=== PATIENT | female | born 1970 | race Caucasian/White ===

== ENCOUNTER 2016-04-23 21:40 | Emergency (ER) | payer BC, OTHER ==
[~2016-04-23] VITALS: Ht 157.5 cm; Wt 83.0 kg
[~2016-04-23 21:40] MED LIST: CETI10TA22 PO; LOSA25TA PO; OMEP20CA5 PO; SUBC1EAC MC; VILA40TA PO
[2016-04-23] MEDS ORDERED: IV NORMAL SALINE 1,000ML 1,000 ML IV SCH (22:20)
[2016-04-23] MEDS ORDERED: ONDANSETRON PF 4 MG/2 ML VIAL. ONE (22:52)
--- NOTE | 2016-04-23 23:10 | EKG ---
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
[2016-04-23] MEDS ORDERED: ONDANSETRON PF 4 MG/2 ML VIAL. IV ONE (23:15)
[2016-04-23 23:26] LABS: BASO % 0 % (0-3); EOS # 0.1 x10^3/uL (0.0-0.7); EOS % 1 % (0-3); HEMATOCRIT 43.1 % (36.0-47.0); HEMOGLOBIN 14.2 g/dL (12.0-15.5); LYMPH # 1.8 x10^3/uL (1.0-4.8); LYMPH % 17 % (24-48); MEAN CORPUSCULAR HEMOGLOBIN 29 pg (25-35); MEAN CORPUSCULAR HGB CONC 33 g/dL (31-37); MEAN CORPUSCULAR VOLUME 87 fL (79-100); MONO # 0.9 x10^3/uL (0.0-1.1); MONO % 8 % (0-9); NEUT # 7.8 x10^3uL (1.8-7.7); NEUT % 74 % (31-73); PLATELET COUNT 461 x10^3/uL (140-400); RED BLOOD COUNT 4.93 x10^6/uL (3.50-5.40); RED CELL DISTRIBUTION WIDTH 12.8 % (11.5-14.5); WHITE BLOOD COUNT 10.5 x10^3/uL (4.0-11.0)
--- NOTE | 2016-04-23 23:27 | PHYS DOC ---
General Chief Complaint: HYPERGLYCEMIA Stated Complaint: BLOOD SUGAR HIGH,NAUSEA,DIABETIC Time Seen by MD: 22:19 Source: patient, old records Exam Limitations: no limitations Problems: History of Present Illness Initial Comments Pt is 45/F to ED c/o elevated glucose. Pt has h/o DM2 with insulin pump, states she maintains consistent ADA diet and med regimen consistency no missed doses. States her BS earlier today at home was greater than 400, she had some mild nausea no vomitting or abdominal pain, no cp/sob/myalgias/sparks. States she had difficulty with the insulin pump she was using thru the day today, before ED at home she changed to new pump which she feels working better. She has h/o "DKA" and hyperosmolar so she wanted to come to ED to be sure she was OK. Feeling somewhat improved upon ED arrival, no nausea on arrival no other sx. ED VS: 97.5, 124 (99 on d/c), 22, 128/84, 95% RA Pt denies skin infection, n/v/cough/sob/cp/sparks/uri sx or other infection. Other than pump no other cause identified by pt for elevated glucose. Timing/Duration: 4-6 hours Severity: moderate Modifying Factors: worse with eating, improves with medication Associated Symptoms: malaise, nausea/vomiting, other Allergies: Coded Allergies: No Known Drug Allergies (Unverified , 04/17/13) Past Medical History Medical History: diabetes, other (carpal tunnel, back pain) Surgical History: noncontributory Psychosocial History: depression Social History Smoker: non-smoker Alcohol: none Drugs: none Review of Systems Constitutional: denies chills, denies diaphoresis, denies fever, malaise Respiratory: denies cough, denies shortness of breath, denies wheezing Cardiovascular: denies chest pain, denies palpitations, denies syncope Gastrointestinal: denies abdominal pain, denies constipation, denies diarrhea, nauseadenies vomiting Genitourinary: denies dysuria, frequencydenies hematuria Musculoskeletal: denies joint swelling, denies neck pain Psychiatric/Neurological: denies headache, denies numbness, denies paresthesia , denies weakness Hematologic/Lymphatic: denies blood clots, denies easy bleeding, denies easy bruising Physical Exam General Appearance: WD/WN, no apparent distress Eyes: bilateral eye EOMI, bilateral eye PERRL, bilateral eye normal inspection Ear, Nose, Throat: hearing grossly normal, normal ENT inspection, normal pharynx Neck: non-tender, supple Respiratory: normal breath sounds, no respiratory distress Cardiovascular: normal peripheral pulses, regular rate, rhythm Gastrointestinal: non tender, soft Back: no CVA tenderness, no vertebral tenderness Extremities: non-tender, normal inspection 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 Pt states she feels much better and wishes to go home. I discussed her sx and results at length. No known cause for sudden glucose lability unless bad insulin pump, however pt does not want to be Obs admission to monitor glucose she wants to go home. She says she will closely monitor her glucose and her newly replaced insulin pump she feels is working well. She has experience with hyperosmolar and DKA, states she will return to ED if needed. Departure Time of Disposition: 01:44 Disposition: 01 HOME, SELF-CARE Diagnosis: DM uncontrolled Condition: IMPROVED Patient Instructions: Diabetes and Sick Day Management Additional Instructions: Off work 04/24. Rest, no strenuous activity. Maintain consistent ADA diet as well as consistency with medication regimen. Monitor glucose closely. Follow up with Ana Paula Simms Wednesday for recheck. Return to ED with new or changing symptoms. AC ALANIZ DO Apr 23, 2016 23:27
[2016-04-23 23:43] LABS: AMPHETAMINE/METHAMPHETAMINE NEG (NEG); BARBITURATES NEG (NEG); BENZODIAZEPINES NEG (NEG); CANNABINOIDS NEG (NEG); COCAINE NEG (NEG); METHADONE NEG (NEG); OPIATES NEG (NEG); PHENCYCLIDINE NEG (NEG)
[2016-04-23 23:49] LABS: ALBUMIN 4.2 g/dL (3.4-5.0); DIRECT BILIRUBIN 0.2 mg/dL (0.0-0.2); TOTAL BILIRUBIN 0.7 mg/dL (0.2-1.0); TOTAL PROTEIN 9.1 g/dL (6.4-8.2)
[2016-04-23 23:53] LABS: BILIRUBIN,URINE NEG (NEG); CLARITY,URINE HAZY; COLOR,URINE YELLOW; GLUCOSE,URINE 100 mg/dL (NEG)
[2016-04-23 23:54] LABS: BACTERIA,URINE FEW /HPF (0-FEW); NITRITE,URINE NEG (NEG); RBC,URINE OCC /HPF (0-2); SQUAMOUS EPITHELIAL CELL,UR FEW /LPF; UROBILINOGEN,URINE 1 mg/dL (0.2 mg/dL)
[2016-04-24] MEDS ORDERED: DEXTROSE 50% 25 GM / 50ML DISP.SYRIN. IV ONE ×2 (00:12→00:30)
[2016-04-24 01:22] VITALS: BP 115/62
[2016-04-24 01:22] LABS: CALCIUM 9.7 mg/dL (8.5-10.1); GFR 60.5; POTASSIUM 3.9 mmol/L (3.5-5.1)
--- NOTE | 2016-04-24 07:54 | RAD ---
Portable chest, 04/23/2016: History: Nausea and vomiting Comparison is made to a study from 04/20/2013. The heart size and pulmonary vascularity are normal. The lungs are clear. There is no evidence of pleural fluid. IMPRESSION: No acute cardiopulmonary abnormality is detected.
== END 2016-04-24 01:59 | disposition home or self-care (01) ==
LOC: ER 21:40
DX: E11.65 Type 2 diabetes mellitus with hyperglycemia (principal); E13.10 Other specified diabetes mellitus with ketoacidosis without coma
CPT/HCPCS: 36415; 71010; 80048; 80076; 81001; 82550; 82947; 83690; 83880; 84484; 85027; 87086; 93005; 96361; 96374; 96375; 99285; G0480; G0481; J2405; J7030

== ENCOUNTER → 2016-05-19 | Outpatient (CLI) | payer BC ==
[2016-04-24 01:22] VITALS: BP 115/62
--- NOTE | 2016-05-19 17:42 | RAD ---
Three-view right shoulder radiographs 05/19/2016 Clinical history: Right shoulder pain for one year. AP internal and external rotation and transscapular digital radiographs of the right shoulder were obtained. No fracture or dislocation of the right shoulder is seen. Mild degenerative changes are seen involving the right AC joint and right glenohumeral joint. Impression: Mild degenerative changes are seen involving the right shoulder. No acute osseous abnormality is seen.
== END | disposition home or self-care (01) ==
LOC: DXRADRC 14:08
PROVIDERS: ATTEND Physician Assistant Medical
DX: M25.511 Pain in right shoulder (principal)
CPT/HCPCS: 73030

== ENCOUNTER → 2020-03-14 | Outpatient (CLI) | payer BC ==
[~2020-03-14] MED LIST changes: -CETI10TA22 PO; +CETI10TA74 PO
--- NOTE | 2020-03-14 10:26 | RAD ---
DATE: 03/14/2020 9:06 AM EXAM: DIGITAL SCREEN BILAT W/CAD HISTORY: Baseline screening. COMPARISON: None Bilateral full field craniocaudal and mediolateral oblique images were obtained using digital technique. This study was interpreted with the benefit of Computerized Aided Detection (CAD). FINDINGS: Breast Density: HETERO The breast parenchyma Is heterogeneously dense, which could reduce sensitivity of mammography. Breast parenchyma level C No suspicious masses, microcalcifications or architectural distortion is present to suggest malignancy in either breast. The visualized axillae are unremarkable. IMPRESSION: No mammographic evidence of malignancy. BI-RADS CATEGORY: 1 NEGATIVE RECOMMENDED FOLLOW-UP: 12M 12 MONTH FOLLOW-UP Annual screening mammography is recommended, unless clinically indicated sooner based on symptoms or change in physical exam. PQRS compliance statement: Patient information was entered into a reminder system with a target due date for the next mammogram. Mammography is a sensitive method for finding small breast cancers, but it does not detect them all and is not a substitute for careful clinical examination. A negative mammogram does not negate a clinically suspicious finding and should not result in delay in biopsying a clinically suspicious abnormality. "Our facility is accredited by the [employer] Mammography Program."
== END ==
LOC: MAMMO 08:39
PROVIDERS: ATTEND Physician Assistant Medical
DX: Z12.31 Encounter for screening mammogram for malignant neoplasm of breast (principal)
CPT/HCPCS: 77067

== ENCOUNTER 2020-12-25 11:09 | Emergency (ER) | payer BC ==
[~2020-12-25] VITALS: Ht 162.6 cm; Wt 84.0 kg
--- NOTE | 2020-12-25 11:40 | PHYS DOC ---
Past History Past Medical History: Diabetes (LATRICE AGUILERA APRN) Past Surgical History: (LATRICE AGUILERA APRN) Smoking: Non-smoker Alcohol Use: None Drug Use: None (LATRICE AGUILERA APRN) Adult General Chief Complaint Chief Complaint: HEADACHE HPI HPI Patient is a 42-year-old female presents emergency department concerning headache for the past week. Denies head injury. Patient reports a slow onset of this headache, denies any thunderclap onset, reported a 5 out of 10 pain scale at the beginning of the week, reports taking [id number] Tylenol and Motrin with only minimal relief noting her headaches seem to get worse and better throughout the day. Patient reports she seen urgent care yesterday for this headache is a head increase to a 6 to a 7 out of 10 pain, was given a Toradol injection intramuscularly with pain relief. Patient reports she woke up this morning without headache pain and while she was getting ready for work noticed her headache started to come back, decided to come to the emergency department for evaluation of headache pain. Patient denies history of migraines, reports nausea without vomiting, denies chest pain shortness of breath, denies dizziness or visual disturbances, denies blurry vision, denies ear pain or throat pain, denies nasal or chest congestion, denies rashes to her skin. Denies increased thirst or increased urination, reports a history of type 2 diabetes and takes NovoLog insulin. Denies allergies to medications, surgical history of C-sections in the past, left hip surgery related to unknown type of cancer which she was an . Reports she has been cancer free since. Reports her last menstrual cycle was 1 week ago with normal duration of flow. Patient denies other physical complaints or physical concerns. Patient does report needing a work excuse for yesterday and today. (LATRICE AGUILERA APRN) Review of Systems Review of Systems 14 body systems of review of systems have been reviewed. See HPI for pertinent positives and negative responses, otherwise all other systems are negative, nonpertinent or noncontributory. Constitutional: Negative except as outlined in HPI above. Skin: Negative except as outlined in HPI above. Eyes: Negative except as outlined in HPI above. HENT: Negative except as outlined in HPI above. Respiratory: Negative except as outlined in HPI above. Cardiovascular: Negative except as outlined in HPI above. GI: Negative except as outlined in HPI above. : Negative except as outlined in HPI above. Musculoskeletal: Negative except as outlined in HPI above. Integument: Negative except as outlined in HPI above. Neurologic: Negative except as outlined in HPI above. Endocrine: Negative except as outlined in HPI above. Lymphatic: Negative except as outlined in HPI above. Psychiatric: Negative except as outlined in HPI above. (LATRICE AGUILERA APRN) Allergies Allergies Allergies Coded Allergies Type Severity Reaction Last Updated Verified No Known Drug Allergies 04/17/13 No (LATRICE AGUILERA APRN) Physical Exam Physical Exam Constitutional: Well developed, well nourished, no acute distress, non-toxic appearance. Patient appears photophobic otherwise in no apparent distress. HENT: Normocephalic, atraumatic. Oropharynx moist, pink, no deep tissue infectious process appreciated, bilateral TMs within normal limits, no lymphadenopathy of the head or neck appreciated. Eyes: Bilateral conjunctiva normal, no discharge from either eye. Photophobic, PERRLA, satisfactory 6 cardinal eye movements. Neck: Normal range of motion, no stridor. No midline spinal pain. Mild pain to palpation along muscular structures of the neck on the left and right. No step- offs appreciated, no bruising, no swelling, no edema, no crepitus appreciated. Cardiovascular: No cyanosis appreciated, distal cap refill less than 2 seconds. Lungs & Thorax: Patient is in no respiratory distress, no audible adventitious lung sounds appreciated. Abdomen: Nontender, no abnormalities noted. Skin: Warm, dry, no erythema, no rash. Back: No tenderness, no deformities. Extremities: No tenderness, no cyanosis, no clubbing, ROM intact, no edema. Neurologic: Alert and oriented X 3, normal motor function, normal sensory function, no focal deficits noted. Psychologic: Affect normal, judgement normal, mood normal. (LATRICE AGUILERA APRN) EKG EKG [] (LATRICE AGUILERA APRN) Radiology/Procedures Radiology/Procedures REASON: Severe headache PROCEDURE: CT HEAD WO CONTRAST EXAM: Head CT without contrast. HISTORY: Headache. TECHNIQUE: Computed tomographic images of the head were obtained without contrast. *One or more of the following individualized dose reduction techniques were utilized for this examination: 1. Automated exposure control. 2. Adjustment of the mA and/or kV according to patient size. 3. Use of iterative reconstruction technique. COMPARISON: None. FINDINGS: There is no acute or subacute extra-axial or intraparenchymal hemorrhage. There is no mass effect or midline shift. There is no hydrocephalus. The bonilla-white matter differentiation pattern is intact. The visualized portions of the orbits, paranasal sinuses and mastoid air cells are unremarkable. No suspicious calvarial lesion is seen. IMPRESSION: No acute intracranial findings. Electronically signed by: Aure Cervantes MD (12/25/2020 11:59 AM) [id number] (LATRICE AGUILERA APRN) Heart Score C/O Chest Pain: No Risk Factors: Risk Factors: DM, Current or recent (<one month) smoker, HTN, HLP, family history of CAD, obesity. Risk Scores: Risk Factors: DM, Current or recent (<one month) smoker, HTN, HLP, family history of CAD, obesity. (LATRICE AGUILERA APRN) Course & Med Decision Making Course & Med Decision Making Pertinent Labs and Imaging studies reviewed. (See chart for details) 50-year-old female, vital signs reviewed, presents emerged from concerning headache pain. Physical examination consistent with tension headache, patient's blood pressure is 161/100, patient does have history of cancer as an , does not have a history of headaches or migraines, denies any thunderclap onset of headache, patient is unsure if this is the worst headache of her life, will CT head without contrast. Patient did find satisfactory pain relief with Toradol given yesterday by urgent care center. Patient's onset of headache started when she was getting ready for work, did miss work yesterday, denies stressful life events at this time, with will order headache cocktail. Will reevaluate after period of time. CT head without contrast negative for acute findings. Upon reevaluation the patient, patient reports headache relief, discussed with patient CT findings, strict follow-up with her primary care provider Ana Paula Simms this week for ongoing headache problems. Return to ER precautions and concerns. Patient is amenable to ED discharge planning Discussed with the patient all findings and diagnostic testing as well as the need to follow-up with their primary care provider for further evaluation and treatment or return to the ED if any new or worsening symptoms. Strict return precautions were also discussed at length, the patient voiced understanding and agreement with the discharge planning. The patient was nontoxic in appearance, in no apparent distress, and hemodynamically stable at the time of disposition. (LATRICE AGUILERA APRN) Course & Med Decision Making I was the Attending physician on the above date of service of this patient. This patient was evaluated, examined, treated, and dispositioned from the emergency department by the mid-level practitioner. Although I was working at the time , no assistance was requested. Electronically signed, Demetrice Aquino DO (DEMETRICE AQUINO DO) Dragon Disclaimer Dragon Disclaimer This electronic medical record was generated, in whole or in part, using a voice recognition dictation system. (LATRICE AGUILERA APRN) Departure Departure: Impression: Primary Impression: Headache Disposition: HOME / SELF CARE / HOMELESS Condition: GOOD Referrals: ANA PAULA SIMMS (PCP) Patient Instructions: General Headache Without Cause Additional Instructions: You were seen today in the emergency department for a headache that has been going on for the past week. A CT scan of your head did not reveal any concerning findings. You were given headache medications in the emergency department today which help relieve your headache to a tolerable level. As we discussed, please follow-up with your primary care provider this week for ongoing evaluation of your headaches and headache pain management. Please return to the emergency department for worsening symptoms, severe headache return, nausea, vomiting, or other concerns. Thank you for visiting our E mergency Department. It was a pleasure taking care of you today in the emergency department and we appreciate you trusting us with your care. If any additional problems come up don't hesitate to return to visit us. Please follow up with your primary care provider so they can plan additional care if needed and know about the problem that you had. If symptoms worsen come back to the Emergency Department. Any concerning symptoms that start such as chest pain, shortness of air, weakness or numbness on one side of the body, running high fevers or any other concerning symptoms return to the ER. EMERGENCY DEPARTMENT GENERAL DISCHARGE INSTRUCTIONS Thank you for coming to [facility] (ED) today and trusting us with you care. We trust that you had a positivie experience in our Emergency Department. If you wish to speak to the department management, you may call the director at [phone]. YOUR FOLLOW UP INSTRUCTIONS ARE FOLLOWS: 1. Do you have a private Doctor? If you do not have a private doctor, please ask for a resource list of physicians or clinics that may be able to assist you with follow up care. 2. The Emergency Physician has interpreted your x-rays. The X-Ray specialist will also review them. If there is a change in the findings, you will be notified in 48 hours when at all possible. 3. A lab test or culture has been done, your results will be reviewed and you will be notified if you need a change in treatment. ADDITIONAL INSTRUCTIONS AND INFORMATION: 1. Your care today has been supervised by a physician who is specially trained in emergency care. Many problems require more than one evaluation for a complete diagnosis and treatment. We recommend that you schedule your follow up appointment as recommended to ensure complete treatment of you illness or injury. If you are unable to obtain follow up care and continue to have a problem, or if your condition worsens, we recommend that you return to the ED. 2. We are not able to safely determine your condition over the phone nor are we able to give sound medical advice over the phone. For these safety reasons, if you call for medical advice we will ask you to come to the ED for further evaluation. 3. If you have any questions regarding these discharge instructions please call the ED at [phone]. SAFETY INFORMATION: In the interest of safety, wellness, and injury prevention; we encourage you to wear your sealbelt, if you smoke; quite smoking, and we encourage family to use a protective helmet for bicycling and other sporting events that present an increased risk for head injury. IF YOUR SYMPTOMS WORSEN OR NEW SYMPTOMS DEVELOP, OR YOU HAVE CONCERNS ABOUT YOUR CONDITION; OR IF YOUR CONDITION WORSENS WHILE YOU ARE WAITING FOR YOUR FOLLOW UP APPOINTMENT; EITHER CONTACT YOUR PRIMARY CARE DOCTOR, THE PHYSICIAN WHOSE NAME AND NUMBER YOU WERE GIVEN, OR RETURN TO THE ED IMMEDIATELY. Problem Qualifiers Primary Impression: Headache Headache type: unspecified Headache chronicity pattern: unspecified pattern Intractability: not intractable Qualified Codes: R51.9 - Headache, unspecified LATRICE AGUILERA APRN Dec 25, 2020 11:40 DEMETRICE AQUINO DO Jan 06, 2021 06:20
[2020-12-25] MEDS ORDERED: METOCLOPRAMIDE HCL 10 MG/2 ML VIAL. IVP ONE (11:45)
[2020-12-25] MEDS ORDERED: diphenhydrAMINE 50 MG/ML VIAL IVP ONE (11:45)
[2020-12-25] MEDS ORDERED: IV NORMAL SALINE 1,000ML 1,000 ML IV ONE (11:45)
[2020-12-25] MEDS ORDERED: KETOROLAC 30 MG/ML VIAL. IVP ONE (11:45)
--- NOTE | 2020-12-25 12:01 | RAD ---
EXAM: Head CT without contrast. HISTORY: Headache. TECHNIQUE: Computed tomographic images of the head were obtained without contrast. *One or more of the following individualized dose reduction techniques were utilized for this examina tion: 1. Automated exposure control. 2. Adjustment of the mA and/or kV according to patient size. 3. Use of iterative reconstruction technique. COMPARISON: None. FINDINGS: There is no acute or subacute extra-axial or intraparenchymal hemorrhage. There is no mass effect or midline shift. There is no hydrocephalus. The bonilla-white matter differentiation pattern is intact. The visualized portions of the orbits, paranasal sinuses and mastoid air cells are unremarkable. No s uspicious calvarial lesion is seen. IMPRESSION: No acute intracranial findings. Electronically signed by: Aure Cervantes MD (12/25/2020 11:59 AM) [id number]
[2020-12-25 13:23] VITALS: BP 127/75
== END 2020-12-25 13:30 | disposition home or self-care (01) ==
LOC: ER 11:09
DX: R51.9 Headache, unspecified (principal); R11.0 Nausea; E11.9 Type 2 diabetes mellitus without complications
CPT/HCPCS: 70450; 96361; 96374; 96375; 99284; J1200; J1885; J2765; J7030

== ENCOUNTER → 2021-04-16 | Outpatient (CLI) | payer BC ==
--- NOTE | 2021-04-16 11:08 | RAD ---
AP and Lateral Views of the Chest 04/16/2021 10:43 AM Indication: Chest pain intermittent x2 weeks Comparison: Chest radiograph April 23, 2016 Findings: There is no focal consolidation or infiltrate identified. Heart size is normal. There is no evidence of pneumothorax or pleural effusion. No acute osseous abnormalities are identified. Impression: No evidence of acute cardiopulmonary process. Electronically signed by: Freddy Holcomb MD (04/16/2021 11:05 AM) [id number]
== END ==
LOC: RAD 10:33
PROVIDERS: ATTEND Physician Assistant Medical
DX: R07.9 Chest pain, unspecified (principal)
CPT/HCPCS: 71046